=== PATIENT | male | born 1970 | race Caucasian/White ===

== ENCOUNTER 2017-02-19 11:04 | Observation (INO) | payer BC ==
[~2017-02-19 11:04] MED LIST: HYDROmorphone 1 MG/ML Syringe ONE
[2017-02-19] MEDS ORDERED: HYDROmorphone 1 MG/ML Syringe IVPUSH ONE ×3 (11:10→13:09)
--- NOTE | 2017-02-19 11:28 | EDM.PDOC ---
ED HPI GENERAL MEDICAL PROBLEM - General Chief Complaint: Back Pain or Injury Stated Complaint: back injury Time Seen by Provider: 02/19/17 11:20 Source of Information: Reports: Patient, EMS History Limitations: Reports: No Limitations - History of Present Illness INITIAL COMMENTS - FREE TEXT/NARRATIVE: Patient is a 46 year old male who [facility] He reports that he slipped and fell out of the back of a pickup onto a trailer hitch, hitting his mid and lower back. At the time of ER presentation patient appears to be in severe pain and c/o 10/10 pain to his mid/lower back, worse in his right mid/ lower back. He is able to move all extremities. He denies loss of bowel or bladder control. Denies numbness of tingling. Denies LOC with fall. No complaints outside of the back pain. 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 Right Back Pain Score (Numeric/FACES): 10 - Related Data Allergies Allergy/AdvReac Type Severity Reaction Status Date / Time No Known Allergies Allergy Verified 05/05/16 10:03 Home Meds: Home Meds Loratadine [Claritin] 10 mg PO DAILY 05/04/16 [History] Psyllium Husk (With Sugar) [Metamucil Powder] 1 dose PO BID PRN 05/04/16 [ History] Losartan [Cozaar] 100 mg PO DAILY 02/19/17 [History] Pantoprazole Sodium [Pantoprazole Sodium] 40 mg PO DAILY 02/19/17 [History] atorvaSTATin Calcium [Atorvastatin Calcium] 10 mg PO DAILY 02/19/17 [History] Past Medical History Musculoskeletal History: Reports: Other (See Below) Other Musculoskeletal History: fibula fracture ED ROS GENERAL - Review of Systems Review Of Systems: ROS reveals no pertinent complaints other than HPI. Constitutional: Reports: No Symptoms HEENT: Reports: No Symptoms Respiratory: Reports: No Symptoms Cardiovascular: Reports: No Symptoms Endocrine: Reports: No Symptoms GI/Abdominal: Reports: No Symptoms : Reports: No Symptoms Musculoskeletal: Reports: Muscle Pain, Other (back pain- right mid and upper) Skin: Reports: No Symptoms Neurological: Reports: No Symptoms, Difficulty Walking (due to pain). Denies: Confusion, Dizziness, Headache, Numbness, Paresthesia, Pre-Existing Deficit, Seizure, Syncope, Tingling, Tremors, Trouble Speaking, Change in Speech Psychiatric: Reports: No Symptoms Hematologic/Lymphatic: Reports: No Symptoms Immunologic: Reports: No Symptoms ED EXAM,LOWER BACK PAIN/INJURY - Physical Exam Exam: See Below Exam Limited By: No Limitations General Appearance: Alert, WD/WN, Anxious, Moderate Distress Eye Exam: Bilateral Eye: EOMI, Normal Fundi, Normal Inspection, PERRL Ears: Normal External Exam, Normal Canal, Hearing Grossly Normal, Normal TMs Nose: Normal Inspection, Normal Mucosa, No Blood Throat/Mouth: Normal Inspection, Normal Lips, Normal Teeth, Normal Gums, Normal Oropharynx, Normal Voice, No Airway Compromise Head: Atraumatic, Normocephalic Neck: Normal Inspection, Supple, Non-Tender, Full Range of Motion Respiratory/Chest: No Respiratory Distress, Lungs Clear, Normal Breath Sounds, No Accessory Muscle Use, Chest Non-Tender Cardiovascular: Normal Peripheral Pulses, Regular Rate, Rhythm, No Edema, No Gallop, No JVD, No Murmur, No Rub GI/Abdominal: Normal Bowel Sounds, Soft, Non-Tender, No Organomegaly, No Distention, No Abnormal Bruit, No Mass (Male) Exam: Deferred Rectal (Males) Exam: Deferred Back Exam: Decreased Range of Motion (pain), Muscle Spasm, Other (edema and ecchymosis to right upper back, pain with movement). No: CVA Tenderness (L), CVA Tenderness (R), Paraspinal Tenderness, Vertebral Tenderness Extremities: Normal Inspection, Normal Range of Motion, Non-Tender, No Pedal Edema, Normal Capillary Refill Neurological: Alert, Normal Mood/Affect, Normal Dorsiflexion, CN II-XII Intact, Normal Plantar Flexion, Normal Reflexes, No Motor/Sensory Deficits, Oriented x 3 Psychiatric: Anxious Skin Exam: Warm, Dry, Intact, Normal Color, No Rash, Ecchymosis (to upper right back) Lymphatic: No Adenopathy Course - Vital Signs Last Recorded V/S: Last Vital Signs Temp 98.3 F 02/19/17 11:05 Pulse 75 02/19/17 11:05 Resp 22 H 02/19/17 11:05 BP 138/81 02/19/17 11:05 Pulse Ox 95 02/19/17 11:05 - Orders/Labs/Meds Orders: Active Orders 24 hr Category Date Time Status Lumbar Spine wo Cont [CT] Stat Exams 02/19/17 11:15 Taken Thoracic Spine wo Cont [CT] Stat Exams 02/19/17 11:15 Taken Medication Orders Acetaminophen (Tylenol) 650 mg PO Q4H PRN PRN Reason: Pain (Mild 1-3)/fever Cyclobenzaprine HCl (Flexeril) 10 mg PO TID PRN PRN Reason: Pain Docusate Sodium (Colace) 100 mg PO BID PRN PRN Reason: Constipation Hydromorphone HCl (Dilaudid) 0.5 mg IVPUSH Q2H PRN PRN Reason: Pain (severe 7-10) Losartan Potassium (Cozaar) 100 mg PO DAILY [facility] Magnesium Hydroxide (Milk Of Magnesia) 30 ml PO Q12H PRN PRN Reason: Constipation Ondansetron HCl (Zofran) 4 mg IV Q6H PRN PRN Reason: Nausea/Vomiting Oxycodone/Acetaminophen (Percocet 325-5 Mg) 1 tab PO Q4H PRN PRN Reason: pain Pantoprazole Sodium (Protonix) 40 mg PO DAILY [facility] Psyllium Husk (Metamucil Sugar Free) 1 pkt PO BID PRN PRN Reason: constipation Temazepam (Restoril) 15 mg PO BEDTIME PRN PRN Reason: Sleep Meds: Medications Generic Name Dose Route Start Last Admin Trade Name Freq PRN Reason Stop Dose Admin Acetaminophen 650 mg 02/19/17 14:38 Tylenol PO Q4H PRN Pain (Mild 1-3)/fever Cyclobenzaprine HCl 10 mg 02/19/17 14:38 Flexeril PO TID PRN Pain Docusate Sodium 100 mg 02/19/17 14:38 Colace PO BID PRN Constipation Hydromorphone HCl 0.5 mg 02/19/17 14:38 Dilaudid IVPUSH Q2H PRN Pain (severe 7-10) Losartan Potassium 100 mg 02/20/17 08:00 Cozaar PO DAILY [facility] Magnesium Hydroxide 30 ml 02/19/17 14:38 Milk Of Magnesia PO Q12H PRN Constipation Ondansetron HCl 4 mg 02/19/17 14:38 Zofran IV Q6H PRN Nausea/Vomiting Oxycodone/Acetaminophen 1 tab 02/19/17 14:38 Percocet 325-5 Mg PO Q4H PRN pain Pantoprazole Sodium 40 mg 02/20/17 08:00 Protonix PO DAILY FRANCES Psyllium Husk 1 pkt 02/20/17 08:00 Metamucil Sugar Free PO BID PRN constipation Temazepam 15 mg 02/19/17 14:38 Restoril PO BEDTIME PRN Sleep Discontinued Medications Generic Name Dose Route Start Last Admin Trade Name Freq PRN Reason Stop Dose Admin Hydromorphone HCl Confirm 02/19/17 10:59 02/19/17 11:22 Dilaudid Administered 02/19/17 11:00 Not Given Dose 1 mg .ROUTE .STK-MED ONE Hydromorphone HCl 1 mg 02/19/17 11:10 02/19/17 11:10 Dilaudid IVPUSH 02/19/17 11:11 1 mg ONETIME ONE Administration Hydromorphone HCl 1 mg 02/19/17 12:04 02/19/17 12:10 Dilaudid IVPUSH 02/19/17 12:05 1 mg ONETIME ONE Administration Hydromorphone HCl 1 mg 02/19/17 13:09 02/19/17 13:14 Dilaudid IVPUSH 02/19/17 13:10 1 mg ONETIME ONE Administration Orphenadrine Citrate 60 mg 02/19/17 11:30 02/19/17 11:30 Norflex IV 60 mg Q12H FRANCES Administration - Radiology Interpretation Free Text/Narrative:: Radiologist reports right transverse process fractures of T12, L1, L2, and L3. Does not see any other abnormalities. CT Results Date: 02/19/17 CT Results Time: 13:06 - Re-Assessments/Exams Free Text/Narrative Re-Assessment/Exam: 02/19/17 13:08 Consulted with Joe De Jesus Neurosurgeron Dr. Marsh. Images sent to him for review. He reports that this type of fracture does not cause issues with stability of the spine and there is nothing to be done surgically. He states these types of fractures are very painful and take time to heal. He reports that they typically heal within 4-6 weeks without any residual deficits. He does expect the patient to have terrible pain for about the next month. He recommends pain control and a brace, such as a [place] brace, to decrease movement of the affected area for better pain control. 02/19/2017 13:[address] results with patient, , and family members present. Will admit patient to observation under Dr. Cooper for pain control. Departure - Departure Time of Disposition: 14:09 Disposition: Refer to Observation Condition: Fair Clinical Impression: Fracture of transverse process of lumbar vertebra Qualifiers: Encounter type: initial encounter Fracture type: closed Qualified Code(s): S32.009A - Unspecified fracture of unspecified lumbar vertebra, initial encounter for closed fracture Fracture of transverse process of thoracic vertebra Qualifiers: Encounter type: initial encounter Fracture type: closed Qualified Code(s): S22.009A - Unspecified fracture of unspecified thoracic vertebra, initial encounter for closed fracture - Discharge Information - Problem List & Annotations (1) Fracture of transverse process of lumbar vertebra SNOMED Code(s): 971936872 Code(s): S32.009A - UNSP FRACTURE OF UNSP LUMBAR VERTEBRA, INIT FOR CLOS FX Status: Acute Priority: High Current Visit: Yes Qualifiers: Encounter type: initial encounter Fracture type: closed Qualified Code(s) : S32.009A - Unspecified fracture of unspecified lumbar vertebra, initial encounter for closed fracture (2) Fracture of transverse process of thoracic vertebra SNOMED Code(s): 253013286 Code(s): S22.009A - UNSP FRACTURE OF UNSP THORACIC VERTEBRA, INIT FOR CLOS FX Status: Acute Priority: High Current Visit: Yes Qualifiers: Encounter type: initial encounter Fracture type: closed Qualified Code(s) : S22.009A - Unspecified fracture of unspecified thoracic vertebra, initial encounter for closed fracture (3) Back pain due to injury SNOMED Code(s): 374624043 Code(s): S39.92XA - UNSPECIFIED INJURY OF LOWER BACK, INITIAL ENCOUNTER Status: Acute Priority: High Current Visit: Yes - Problem List Review Problem List Initiated/Reviewed/Updated: Yes - My Orders Last 24 Hours: My Active Orders 02/19/17 11:15 Lumbar Spine wo Cont [CT] Stat Thoracic Spine wo Cont [CT] Stat - Assessment/Plan Admission H&P: Please use this note as an admission H&P Last 24 Hours: My Active Orders 02/19/17 11:15 Lumbar Spine wo Cont [CT] Stat Thoracic Spine wo Cont [CT] Stat Assessment:: Right Transverse Process Fracture T12, L1, L2, and L3 Acute back pain due to trauma Plan: Will admit to observation under care of Dr. Cooper. Oral pain medications PRN. IV pain medications for breakthrough pain. Consult to Physical therapy Patient will bring back brace from home Patient ok to use home medications. Recommend patient take stool softner for next month while on pain medications.
[2017-02-19] MEDS ORDERED: Docusate Sodium 100 MG Cap PO PRN (14:38)
[2017-02-19] MEDS ORDERED: Magnesium Hydroxide 400 MG/5 ML Susp 30 ML Cup PO PRN (14:38)
[2017-02-19] MEDS ORDERED: Temazepam 15 MG Cap PO PRN (14:38)
[2017-02-19] MEDS ORDERED: Cyclobenzaprine 10 MG Tab PO PRN (14:38)
[2017-02-19] MEDS ORDERED: Acetaminophen/oxyCODONE 325-5 MG Tab PO PRN (14:38)
[2017-02-19] MEDS ORDERED: Ondansetron 4 MG/2 ML SDV IV PRN (14:38)
[2017-02-19] MEDS ORDERED: Acetaminophen 325 MG Tab PO PRN (14:38)
[2017-02-19] MEDS: HYDROmorphone 1 MG/ML Syringe IVPUSH PRN ×2 (16:56→21:05)
[2017-02-19] MEDS ORDERED: Promethazine 25 MG in Sodium Chloride 0.9% 50 ML IV PRN (20:38)
[2017-02-19] MEDS ORDERED: Promethazine 12.5 MG in Sodium Chloride 0.9% 50 ML IV PRN (21:10)
[2017-02-20] MEDS: HYDROmorphone 1 MG/ML Syringe IVPUSH PRN (05:08)
[2017-02-20] MEDS ORDERED: Psyllium Husk Powder Sugar Free 5.85 GM Packet PO PRN (08:00)
[2017-02-20] MEDS ORDERED: hydrOXYzine HCl 25 MG Tab PO PRN (08:32)
[2017-02-20] MEDS: Losartan 100 MG Tab PO SCH (08:47)
[2017-02-20] MEDS: Polyethylene Glycol 3350 Powder 17 GM Packet PO SCH (08:48)
[2017-02-20] MEDS: Enoxaparin 40 MG/0.4 ML Syringe SUBCUT SCH (08:48)
[2017-02-20] MEDS: Pantoprazole 40 MG Tab.CR PO SCH (08:48)
[2017-02-20] MEDS: Docusate Sodium 100 MG Cap PO SCH ×2 (08:48→20:22)
[2017-02-20] MEDS: Acetaminophen/oxyCODONE 325-5 MG Tab PO PRN ×2 (08:49→21:20)
[2017-02-20] MEDS: Celecoxib 100 MG Cap PO SCH ×2 (09:09→17:28)
[2017-02-20] MEDS: Cyclobenzaprine 10 MG Tab PO SCH ×3 (09:09→20:21)
--- NOTE | 2017-02-20 19:20 | PCM.PN ---
- General Info Date of Service: 02/20/17 Functional Status: Reports: Tolerating Diet. Denies: Pain Controlled, Ambulating - Review of Systems General: Denies: Fever HEENT: Reports: No Symptoms Pulmonary: Denies: Shortness of Breath, Cough Cardiovascular: Denies: Chest Pain Gastrointestinal: Reports: No Symptoms Musculoskeletal: Reports: Back Pain Skin: Reports: Bruising Psychiatric: Reports: No Symptoms - Patient Data Vitals - Most Recent: Last Vital Signs Temp 97.6 F 02/20/17 08:00 Pulse 68 02/20/17 08:00 Resp 18 02/20/17 08:00 BP 142/74 H 02/20/17 08:47 Pulse Ox 95 02/20/17 08:00 Weight - Most Recent: 226 lb Med Orders - Current: Current Medications Acetaminophen (Tylenol) 650 mg PO Q4H PRN PRN Reason: Pain (Mild 1-3)/fever Celecoxib (Celebrex) 200 mg PO BIDMEALS [facility] Last Admin: 02/20/17 17:28 Dose: 200 mg Cyclobenzaprine HCl (Flexeril) 10 mg PO TID [facility] Last Admin: 02/20/17 14:13 Dose: 10 mg Docusate Sodium (Colace) 100 mg PO BID [facility] Last Admin: 02/20/17 08:48 Dose: 100 mg Enoxaparin Sodium (Lovenox) 40 mg SUBCUT Q24H [facility] Last Admin: 02/20/17 08:48 Dose: 40 mg Hydromorphone HCl (Dilaudid) 0.5 mg IVPUSH Q2H PRN PRN Reason: Pain (severe 7-10) Last Admin: 02/20/17 05:08 Dose: 0.5 mg Hydroxyzine HCl (Atarax) 25 mg PO Q6H PRN PRN Reason: Itching Last Admin: 02/20/17 08:48 Dose: 25 mg Promethazine HCl 12.5 mg/ (Sodium Chloride) 50.5 mls @ 100 mls/hr IV Q6H PRN PRN Reason: Nausea Losartan Potassium (Cozaar) 100 mg PO DAILY [facility] Last Admin: 02/20/17 08:47 Dose: 100 mg Magnesium Hydroxide (Milk Of Magnesia) 30 ml PO Q12H PRN PRN Reason: Constipation Ondansetron HCl (Zofran) 4 mg IV Q6H PRN PRN Reason: Nausea/Vomiting Last Admin: 02/19/17 17:36 Dose: 4 mg Oxycodone/Acetaminophen (Percocet 325-5 Mg) 1 - 2 tab PO Q4H PRN PRN Reason: pain Last Admin: 02/20/17 08:49 Dose: 2 tab Pantoprazole Sodium (Protonix) 40 mg PO DAILY [facility] Last Admin: 02/20/17 08:48 Dose: 40 mg Polyethylene Glycol (Miralax) 17 gm PO DAILY [facility] Last Admin: 02/20/17 08:48 Dose: 17 gm Psyllium Husk (Metamucil Sugar Free) 1 pkt PO BID PRN PRN Reason: constipation Temazepam (Restoril) 15 mg PO BEDTIME PRN PRN Reason: Sleep Discontinued Medications Cyclobenzaprine HCl (Flexeril) 10 mg PO TID PRN PRN Reason: Pain Last Admin: 02/19/17 18:38 Dose: 10 mg Docusate Sodium (Colace) 100 mg PO BID PRN PRN Reason: Constipation Hydromorphone HCl (Dilaudid) Confirm Administered Dose 1 mg .ROUTE .STK-MED ONE Stop: 02/19/17 11:00 Last Admin: 02/19/17 11:22 Dose: Not Given Hydromorphone HCl (Dilaudid) 1 mg IVPUSH ONETIME ONE Stop: 02/19/17 11:11 Last Admin: 02/19/17 11:10 Dose: 1 mg Hydromorphone HCl (Dilaudid) 1 mg IVPUSH ONETIME ONE Stop: 02/19/17 12:05 Last Admin: 02/19/17 12:10 Dose: 1 mg Hydromorphone HCl (Dilaudid) 1 mg IVPUSH ONETIME ONE Stop: 02/19/17 13:10 Last Admin: 02/19/17 13:14 Dose: 1 mg Promethazine HCl 25 mg/ Sodium (Chloride) 51 mls @ 100 mls/hr IV Q6H PRN PRN Reason: Nausea Last Admin: 02/19/17 20:55 Dose: 100 mls/hr Orphenadrine Citrate (Norflex) 60 mg IV Q12H [facility] Last Admin: 02/19/17 11:30 Dose: 60 mg Oxycodone/Acetaminophen (Percocet 325-5 Mg) 1 tab PO Q4H PRN PRN Reason: pain Last Admin: 02/19/17 18:38 Dose: 1 tab - Exam General: Alert, Oriented HEENT: Mucous Membr. Moist/[place] Neck: Supple Lungs: Clear to Auscultation, Normal Respiratory Effort Cardiovascular: Regular Rate, Regular Rhythm GI/Abdominal Exam: Normal Bowel Sounds, Soft, Non-Tender Back Exam: Decreased Range of Motion, Vertebral Tenderness, Other (bruising to right lateral flank) Extremities: Normal Inspection, No Pedal Edema Skin: Warm, Dry, Ecchymosis Neurological: No New Focal Deficit - Problem List & Annotations (1) Back pain due to injury SNOMED Code(s): 244963717 Code(s): S39.92XA - UNSPECIFIED INJURY OF LOWER BACK, INITIAL ENCOUNTER Status: Acute Priority: High Current Visit: Yes (2) Fracture of transverse process of lumbar vertebra SNOMED Code(s): 069947130 Code(s): S32.009A - UNSP FRACTURE OF UNSP LUMBAR VERTEBRA, INIT FOR CLOS FX Status: Acute Priority: High Current Visit: Yes Qualifiers: Encounter type: initial encounter Fracture type: closed Qualified Code(s) : S32.009A - Unspecified fracture of unspecified lumbar vertebra, initial encounter for closed fracture (3) Fracture of transverse process of thoracic vertebra SNOMED Code(s): 882093466 Code(s): S22.009A - UNSP FRACTURE OF UNSP THORACIC VERTEBRA, INIT FOR CLOS FX Status: Acute Priority: High Current Visit: Yes Qualifiers: Encounter type: initial encounter Fracture type: closed Qualified Code(s) : S22.009A - Unspecified fracture of unspecified thoracic vertebra, initial encounter for closed fracture - Problem List Review Problem List Initiated/Reviewed/Updated: Yes - My Orders Last 24 Hours: My Active Orders 02/20/17 08:00 Enoxaparin [Lovenox] 40 mg SUBCUT Q24H 02/20/17 08:32 hydrOXYzine HCl [Atarax] 25 mg PO Q6H PRN 02/20/17 08:33 Acetaminophen/oxyCODONE [Percocet 325-5 MG] 1 - 2 tab PO Q4H PRN 02/20/17 08:45 Docusate Sodium [Colace] 100 mg PO BID Polyethylene Glycol 3350 [MiraLAX] 17 gm PO DAILY 02/20/17 09:00 Celecoxib [CeleBREX] 200 mg PO BIDMEALS Cyclobenzaprine [Flexeril] 10 mg PO TID - Assessment Assessment:: Tranverse fracture of lumbar and thoracic spine - Plan Plan:: Patient continues to have ongoing pain, controlled by Dilaudid. Did take Percocet yesterday but had increased nausea and ultimately had emesis so has been leary to try oral meds since. Also admits he hadn't eaten much prior to the trauma. Moderate amount of bruising noted to right flank region. Tender to the vertebral area. Will add Celebrex and give Flexeril on a scheduled basis. Add hydroxyzine for itching. Zofran as needed for nausea. Encouraged to use pain pills routinely to allow better mobilization. Physical therapy to see patient today.
[2017-02-21] MEDS: Cyclobenzaprine 10 MG Tab PO SCH (07:44)
[2017-02-21] MEDS: Losartan 100 MG Tab PO SCH (07:45)
[2017-02-21] MEDS: Celecoxib 100 MG Cap PO SCH (07:45)
[2017-02-21] MEDS: Docusate Sodium 100 MG Cap PO SCH (07:46)
[2017-02-21] MEDS: Pantoprazole 40 MG Tab.CR PO SCH (07:46)
[2017-02-21] MEDS: Enoxaparin 40 MG/0.4 ML Syringe SUBCUT SCH (07:46)
[2017-02-21] MEDS: Polyethylene Glycol 3350 Powder 17 GM Packet PO SCH (07:47)
[2017-02-21 11:51] VITALS: BP 125/80
--- NOTE | 2017-02-21 16:22 | PCM.DCSUM1 ---
Discharge Summary - Hospital Course Free Text/Narrative:: Patient admitted from ER with transverse process fractures of T12, L1, L2, L3, L4 for pain control. 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 Presented with pain a 01/23 and was given several doses of Dilaudid before the pain was controlled. Started on Flexeril prn, Fentanyl and Dilaudid as needed. PT to consult for pain control and mobility. Patient did have bruising noted to the right lower back/flank area. - Discharge Data Discharge Date: 02/21/17 Discharge Disposition: Home, Self-Care 01 Condition: Fair - Discharge Diagnosis/Problem(s) (1) Back pain due to injury SNOMED Code(s): 509449063 ICD Code: S39.92XA - UNSPECIFIED INJURY OF LOWER BACK, INITIAL ENCOUNTER Status: Acute Priority: High (2) Fracture of transverse process of lumbar vertebra SNOMED Code(s): 051656979 ICD Code: S32.009A - UNSP FRACTURE OF UNSP LUMBAR VERTEBRA, INIT FOR CLOS FX Status: Acute Priority: High Qualifiers: Encounter type: initial encounter Fracture type: closed Qualified Code(s) : S32.009A - Unspecified fracture of unspecified lumbar vertebra, initial encounter for closed fracture (3) Fracture of transverse process of thoracic vertebra SNOMED Code(s): 759499097 ICD Code: S22.009A - UNSP FRACTURE OF UNSP THORACIC VERTEBRA, INIT FOR CLOS FX Status: Acute Priority: High Qualifiers: Encounter type: initial encounter Fracture type: closed Qualified Code(s) : S22.009A - Unspecified fracture of unspecified thoracic vertebra, initial encounter for closed fracture - Patient Summary/Data Complications: none Consults: Consultations 02/20/17 14:50 Consult to Physical Therapy [PT Evaluation and Treatment] [CONS] Routine Hospital Course: Patient admitted for transverse fractures of his T12 and L1-4 vertebrae for pain control. Was initially given IV Dilaudid PRN for control. Did have significant itching with this. Switched to oral pain medicine, added Celebrex and scheduled Flexeril yesterday and patient has done better. Sleeping better. Was up and out of bed several times yesterday and states tolerated fairly well. Is moving his right lower extremity much better today as well. Patient does feel sedated somewhat from meds. Does feel able to return home and continue oral meds for pain and inflammation. - Patient Instructions Diet: Usual Diet as Tolerated Activity: As Tolerated Other/Special Instructions: xrays of back prior to visit - Discharge Plan Prescriptions/Med Rec: Acetaminophen/oxyCODONE [Percocet 325-5 MG] 1 - 2 tab PO Q4H PRN #60 tablet PRN Reason: Pain Celecoxib [CeleBREX] 200 mg PO BIDMEALS #28 cap Cyclobenzaprine [Flexeril] 10 mg PO TID #42 tablet hydrOXYzine HCl [Atarax] 25 mg PO Q6H PRN #30 tablet PRN Reason: Itching Polyethylene Glycol 3350 [MiraLAX] 17 gm PO DAILY PRN #30 packet PRN Reason: Constipation Home Medications: Home Meds Loratadine [Claritin] 10 mg PO DAILY 05/04/16 [History] Psyllium Husk (With Sugar) [Metamucil Powder] 1 dose PO BID PRN 05/04/16 [ History] Losartan [Cozaar] 100 mg PO DAILY 02/19/17 [History] Pantoprazole Sodium 40 mg PO DAILY 02/19/17 [History] atorvaSTATin Calcium [Atorvastatin Calcium] 10 mg PO DAILY 02/19/17 [History] Acetaminophen/oxyCODONE [Percocet 325-5 MG] 1 - 2 tab PO Q4H PRN #60 tablet 11/30 [Rx] Celecoxib [CeleBREX] 200 mg PO BIDMEALS #28 cap 02/21/17 [Rx] Cyclobenzaprine [Flexeril] 10 mg PO TID #42 tablet 02/21/17 [Rx] Polyethylene Glycol 3350 [MiraLAX] 17 gm PO DAILY PRN #30 packet 02/21/17 [Rx] hydrOXYzine HCl [Atarax] 25 mg PO Q6H PRN #30 tablet 02/21/17 [Rx] Forms: ED Department Discharge Referrals: Fawad Cooper MD [Primary Care Provider] - (Follow up with Dr. Cooper in 2 weeks ) - Discharge Summary/Plan Comment DC Time >30 min.: Yes Discharge Summary/Plan Comment: Discharge home on Celebrex, Flexeril and Percocet. Continue hydroxyzine. Follow up with Dr. Cooper in 2 weeks. Will repeat xrays at that time. - General Info Date of Service: 02/21/17 Admission Dx/Problem (Free Text: Multiple transverse process fractures of T12, L1,2,3,4 Functional Status: Reports: Pain Controlled, Tolerating Diet, Ambulating - Review of Systems General: Reports: Weakness. Denies: Fever HEENT: Reports: No Symptoms Pulmonary: Denies: Shortness of Breath, Cough, Wheezing Cardiovascular: Denies: Chest Pain, Lightheadedness Gastrointestinal: Denies: Abdominal Pain, Nausea, Vomiting Genitourinary: Reports: No Symptoms Musculoskeletal: Reports: Back Pain Skin: Reports: No Symptoms - Patient Data Vitals - Most Recent: Last Vital Signs Temp 97.5 F 02/21/17 08:00 Pulse 60 02/21/17 08:00 Resp 19 02/21/17 08:00 BP 125/80 02/21/17 08:00 Pulse Ox 92 L 02/21/17 08:00 Weight - Most Recent: 226 lb Med Orders - Current: Current Medications Discontinued Medications Acetaminophen (Tylenol) 650 mg PO Q4H PRN PRN Reason: Pain (Mild 1-3)/fever Celecoxib (Celebrex) 200 mg PO BIDMEALS [facility] Last Admin: 02/21/17 07:45 Dose: 200 mg Cyclobenzaprine HCl (Flexeril) 10 mg PO TID PRN PRN Reason: Pain Last Admin: 02/19/17 18:38 Dose: 10 mg Cyclobenzaprine HCl (Flexeril) 10 mg PO TID [facility] Last Admin: 02/21/17 07:44 Dose: 10 mg Docusate Sodium (Colace) 100 mg PO BID PRN PRN Reason: Constipation Docusate Sodium (Colace) 100 mg PO BID [facility] Last Admin: 02/21/17 07:46 Dose: 100 mg Enoxaparin Sodium (Lovenox) 40 mg SUBCUT Q24H [facility] Last Admin: 02/21/17 07:46 Dose: 40 mg Hydromorphone HCl (Dilaudid) Confirm Administered Dose 1 mg .ROUTE .STK-MED ONE Stop: 02/19/17 11:00 Last Admin: 02/19/17 11:22 Dose: Not Given Hydromorphone HCl (Dilaudid) 1 mg IVPUSH ONETIME ONE Stop: 02/19/17 11:11 Last Admin: 02/19/17 11:10 Dose: 1 mg Hydromorphone HCl (Dilaudid) 1 mg IVPUSH ONETIME ONE Stop: 02/19/17 12:05 Last Admin: 02/19/17 12:10 Dose: 1 mg Hydromorphone HCl (Dilaudid) 1 mg IVPUSH ONETIME ONE Stop: 02/19/17 13:10 Last Admin: 02/19/17 13:14 Dose: 1 mg Hydromorphone HCl (Dilaudid) 0.5 mg IVPUSH Q2H PRN PRN Reason: Pain (severe 7-10) Last Admin: 02/20/17 05:08 Dose: 0.5 mg Hydroxyzine HCl (Atarax) 25 mg PO Q6H PRN PRN Reason: Itching Last Admin: 02/20/17 08:48 Dose: 25 mg Promethazine HCl 25 mg/ Sodium (Chloride) 51 mls @ 100 mls/hr IV Q6H PRN PRN Reason: Nausea Last Admin: 02/19/17 20:55 Dose: 100 mls/hr Promethazine HCl 12.5 mg/ (Sodium Chloride) 50.5 mls @ 100 mls/hr IV Q6H PRN PRN Reason: Nausea Losartan Potassium (Cozaar) 100 mg PO DAILY [facility] Last Admin: 02/21/17 07:45 Dose: 100 mg Magnesium Hydroxide (Milk Of Magnesia) 30 ml PO Q12H PRN PRN Reason: Constipation Ondansetron HCl (Zofran) 4 mg IV Q6H PRN PRN Reason: Nausea/Vomiting Last Admin: 02/19/17 17:36 Dose: 4 mg Orphenadrine Citrate (Norflex) 60 mg IV Q12H [facility] Last Admin: 02/19/17 11:30 Dose: 60 mg Oxycodone/Acetaminophen (Percocet 325-5 Mg) 1 tab PO Q4H PRN PRN Reason: pain Last Admin: 02/19/17 18:38 Dose: 1 tab Oxycodone/Acetaminophen (Percocet 325-5 Mg) 1 - 2 tab PO Q4H PRN PRN Reason: pain Last Admin: 02/20/17 21:20 Dose: 2 tab Pantoprazole Sodium (Protonix) 40 mg PO DAILY [facility] Last Admin: 02/21/17 07:46 Dose: 40 mg Polyethylene Glycol (Miralax) 17 gm PO DAILY [facility] Last Admin: 02/21/17 07:47 Dose: 17 gm Psyllium Husk (Metamucil Sugar Free) 1 pkt PO BID PRN PRN Reason: constipation Temazepam (Restoril) 15 mg PO BEDTIME PRN PRN Reason: Sleep - Exam General: Reports: Alert, Oriented HEENT: Reports: Mucous Membr. Moist/Bent Neck: Reports: Supple Lungs: Reports: Clear to Auscultation, Normal Respiratory Effort Cardiovascular: Reports: Regular Rate, Regular Rhythm GI/Abdominal Exam: Normal Bowel Sounds, Soft, Non-Tender Back Exam: Reports: Decreased Range of Motion, Muscle Spasm, Vertebral Tenderness Skin: Reports: Ecchymosis *Q Meaningful Use (DIS) - VTE *Q VTE Criteria *Q: - Stroke *Q Stroke Criteria *Q: - AMI *Q AMI Criteria *Q:
== END 2017-02-21 11:30 | disposition home or self-care (01) ==
LOC: CC.ED 11:04 → CC.MS 13:50 → UNDOADMOB 14:33
PROVIDERS: ADMIT Nurse Practitioner Family; ATTEND Family Medicine
DX: S22.088A Other fracture of T11-T12 vertebra, initial encounter for closed fracture (principal); S32.008A Other fracture of unspecified lumbar vertebra, initial encounter for closed fracture; S39.92XA Unspecified injury of lower back, initial encounter; I10 Essential (primary) hypertension; E78.00 Pure hypercholesterolemia, unspecified; Z79.899 Other long term (current) drug therapy; W01.198A Fall on same level from slipping, tripping and stumbling with subsequent striking against other object, initial encounter; Z98.890 Other specified postprocedural states
CPT/HCPCS: 72128; 72131; 96374; 96375; 96376; 99285; A9270; J1170; J1650; J2360; J2405; J2550; J7050; 96365; 96366; 96372; G0378

== ENCOUNTER → 2018-07-19 | Day surgery (SDC) | payer BC ==
[~2018-07-19] MED LIST changes: -HYDROmorphone 1 MG/ML Syringe ONE; +Lactated Ringers 1,000 ML IV SCH; +Propofol 200 MG/20 ML SDV IV ONE
[2018-07-19 09:45] VITALS: BP 138/77
--- NOTE | 2018-07-19 14:42 | OR ---
DATE OF OPERATION: 07/19/2018 PREOPERATIVE DIAGNOSIS: 1. FAMILY HISTORY OF COLON CANCER. 2. HISTORY OF POLYPS. POSTOPERATIVE DIAGNOSIS: 1. FAMILY HISTORY OF COLON CANCER. 2. HISTORY OF POLYPS. SURGEON: Fawad Cooper MD PROCEDURE: DIAGNOSTIC COLONOSCOPY WITH FORCEPS POLYP REMOVAL X4. ANESTHESIA: MAC via ELECTROPHONIC ENGINEER. COMPLICATIONS: None. SPECIMEN: Four small sessile polyps, left colon. RECOMMENDATIONS: Followup colon in 3 to 5 years pending path reports. INDICATIONS: The patient has a strong family history of colon cancer. Last colonoscopy was 3 years ago. We took out 2 polyps. He is in for a 3-year followup diagnostic scope. DESCRIPTION OF PROCEDURE: The patient was prepped and draped, placed in the left lateral decubitus position. A lubricated Olympus colonoscope was inserted and easily advanced to the cecum. Direct visualization of the ileocecal valve and appendiceal orifice was accomplished. The bowel prep was excellent. Upon withdrawal of the scope, the cecum, ascending and transverse colon were completely benign. On the left side of the splenic flexure, the patient had a small sessile polyp removed in its entirety with the cold forceps biopsy x2. Second polyp was noted at the distal end of the descending colon, very small, possibly hyperplastic, removed with a forceps as well. For the most part, the sigmoid colon appeared benign without any other significant polyps, masses, ulceration, or bleeding sites. No vascular abnormalities or signs of colitis. At its most distal portion, there was 1 small flat hyperplastic polyp removed with a forceps. The 4th polyp was in the proximal rectum also extremely small, flat, and likely hyperplastic. The rest of the rectum appeared benign. Retroflexion showed no perianal lesions, air was suctioned, scope removed without complication. JAMES/COURTNEY /[id number]
== END ==
LOC: CC.SDS 08:15
PROVIDERS: ATTEND Family Medicine
DX: Z12.11 Encounter for screening for malignant neoplasm of colon (principal); D12.5 Benign neoplasm of sigmoid colon; D12.3 Benign neoplasm of transverse colon; K63.5 Polyp of colon; K62.1 Rectal polyp; I10 Essential (primary) hypertension; J45.909 Unspecified asthma, uncomplicated; K21.9 Gastro-esophageal reflux disease without esophagitis; E78.5 Hyperlipidemia, unspecified; Z86.010 Personal history of colon polyps; Z79.899 Other long term (current) drug therapy; Z80.0 Family history of malignant neoplasm of digestive organs
CPT/HCPCS: J2704; J7120

== ENCOUNTER 2018-08-03 12:50 | Observation (INO) | payer BC ==
[2018-08-03] MEDS ORDERED: Ketorolac 60 MG/2 ML SDV IM ONE (12:58)
--- NOTE | 2018-08-03 13:33 | EDM.PDOC ---
ED HPI GENERAL MEDICAL PROBLEM - General Chief Complaint: Back Pain or Injury Stated Complaint: back pain Time Seen by Provider: 08/03/18 13:10 Source of Information: Reports: Patient History Limitations: Reports: No Limitations - History of Present Illness INITIAL COMMENTS - FREE TEXT/NARRATIVE: Patient presents to ER with low back pain that radiates down his legs. 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 Last Sunday, patient was bending over to give something to his and he had instant pain in his back and went to the ground. Rested for a few days, wore a back brace and was doing much better. Today, patient bent over to wipe dust off his jeep and had the same pain occur. Now has difficulty with pain in his low back and tingling down his legs. No urinary incontinence. Onset: Today, Sudden Duration: Minutes: Location: Reports: Back Quality: Reports: Sharp Severity: Severe Improves with: Reports: Rest Worsens with: Reports: Movement Associated Symptoms: Reports: No Other Symptoms Back Pain Score (Numeric/FACES): 6 - Related Data Allergies Allergy/AdvReac Type Severity Reaction Status Date / Time No Known Allergies Allergy Verified 08/03/18 13:04 Home Meds: Home Meds Pantoprazole Sodium 40 mg PO DAILY 02/19/17 [History] atorvaSTATin Calcium [Atorvastatin Calcium] 10 mg PO DAILY 02/19/17 [History] Albuterol [Proventil HFA] 2 puff INH Q4H PRN 07/15/18 [History] Losartan/Hydrochlorothiazide [Losartan-HCTZ 100-25 MG] 1 tab PO DAILY 07/15/18 [ History] Psyllium Husk [Metamucil] 660 gm PO DAILY 08/03/18 [History] Past Medical History Cardiovascular History: Reports: High Cholesterol, Hypertension Musculoskeletal History: Reports: Other (See Below) Other Musculoskeletal History: fibula fracture - Past Surgical History HEENT Surgical History: Reports: Naso-Sinus Surgery Social & Family History - Tobacco Use Smoking Status *Q: Never Smoker Second Hand Smoke Exposure: No - Caffeine Use Caffeine Use: Reports: Soda - Recreational Drug Use Recreational Drug Use: No ED ROS GENERAL - Review of Systems Review Of Systems: See Below Constitutional: Denies: Fever, Chills, Malaise, Weakness, Decreased Appetite HEENT: Reports: No Symptoms Respiratory: Denies: Shortness of Breath, Cough Cardiovascular: Denies: Chest Pain, Edema, Lightheadedness Endocrine: Denies: Fatigue GI/Abdominal: Denies: Abdominal Pain, Nausea, Vomiting Musculoskeletal: Reports: Back Pain, Leg Pain Skin: Reports: No Symptoms Neurological: Reports: Difficulty Walking ED EXAM,LOWER BACK PAIN/INJURY - Physical Exam Exam: See Below Exam Limited By: No Limitations General Appearance: Alert, WD/WN, Moderate Distress Ears: Normal External Exam, Normal TMs Nose: Normal Inspection, Normal Mucosa, No Blood Throat/Mouth: Normal Inspection, Normal Oropharynx Head: Normocephalic Neck: Normal Inspection, Supple, Non-Tender Respiratory/Chest: No Respiratory Distress, Lungs Clear, Normal Breath Sounds Cardiovascular: Regular Rate, Rhythm GI/Abdominal: Normal Bowel Sounds, Soft, Non-Tender Back Exam: Normal Inspection, Muscle Spasm, Paraspinal Tenderness (left), Other (positive straight leg raise on the left) Extremities: Normal Inspection, Normal Capillary Refill Neurological: Alert, Normal Mood/Affect, Straight Leg Raise (L) Skin Exam: Warm, Dry Course - Vital Signs Last Recorded V/S: Last Vital Signs Temp 99.7 F 08/03/18 13:00 Pulse 76 08/03/18 13:00 Resp 18 08/03/18 13:00 BP 122/64 08/03/18 13:00 Pulse Ox 95 08/03/18 13:00 - Orders/Labs/Meds Orders: Active Orders 24 hr Category Date Time Status Lumbar Spine Min 4V [CR] Stat Exams 08/03/18 12:59 Ordered Meds: Medications Discontinued Medications Generic Name Dose Route Start Last Admin Trade Name Fanny PRN Reason Stop Dose Admin Ketorolac Tromethamine 60 mg 08/03/18 12:58 08/03/18 13:24 Toradol IM 08/03/18 12:59 60 mg ONETIME ONE Administration Orphenadrine Citrate 60 mg 08/03/18 12:58 08/03/18 13:07 Norflex IM 08/03/18 12:59 60 mg NOW STA Administration - Re-Assessments/Exams Free Text/Narrative Re-Assessment/Exam: 08/03/18 14:07 Xrays normal. patient continues to have pain with movement. Will admit observation. If continues to have intense pain with limitations of ROM in am, will CT scan his back. Departure - Departure Time of Disposition: 14:07 Disposition: Refer to Observation Condition: Fair Clinical Impression: Sciatica, Acute low back pain - Discharge Information *PRESCRIPTION DRUG MONITORING PROGRAM REVIEWED*: No *COPY OF PRESCRIPTION DRUG MONITORING REPORT IN PATIENT MARYURI: No Referrals: PCP,None [Primary Care Provider] - Forms: ED Department Discharge - Problem List & Annotations (1) Acute low back pain SNOMED Code(s): 121885429 Code(s): M54.5 - LOW BACK PAIN Status: Acute Priority: High Current Visit: Yes Qualifiers: Back pain laterality: left Sciatica presence: with sciatica (2) Sciatica SNOMED Code(s): 06419930 Code(s): M54.30 - SCIATICA, UNSPECIFIED SIDE Status: Acute Priority: High Current Visit: Yes Qualifiers: Laterality: left Qualified Code(s): M54.32 - Sciatica, left side - Problem List Review Problem List Initiated/Reviewed/Updated: Yes - My Orders Last 24 Hours: My Active Orders 08/03/18 12:59 Lumbar Spine Min 4V [CR] Stat - Assessment/Plan Admission H&P: Please use this note as an admission H&P Last 24 Hours: My Active Orders 08/03/18 12:59 Lumbar Spine Min 4V [CR] Stat Assessment:: Acute Low Back with Sciatica Plan: Admit observation for pain control, steroids, PT
[2018-08-03] MEDS ORDERED: Ondansetron 4 MG/2 ML SDV IV PRN (15:32)
[2018-08-03] MEDS ORDERED: Ondansetron 4 MG Tab.DIS PO PRN (15:32)
[2018-08-03] MEDS ORDERED: Non-Formulary Medication 1 Each (Albuterol 2 PUFF) INH PRN (15:32)
[2018-08-03] MEDS ORDERED: Magnesium Hydroxide 400 MG/5 ML Susp 30 ML Cup PO PRN (15:32)
[2018-08-03] MEDS ORDERED: Sodium Chloride 0.9% 10 ML Syringe FLUSH PRN (15:32)
[2018-08-03] MEDS ORDERED: Temazepam 15 MG Cap PO PRN (15:32)
[2018-08-03] MEDS ORDERED: Cyclobenzaprine 10 MG Tab PO SCH (15:32)
[2018-08-03] MEDS ORDERED: Acetaminophen/oxyCODONE 325-5 MG Tab PO PRN (15:32)
[2018-08-03] MEDS ORDERED: fentaNYL 100 MCG/2 ML SDV IVPUSH PRN (15:32)
[2018-08-03] MEDS ORDERED: Enoxaparin 40 MG/0.4 ML Syringe SUBCUT SCH (15:32)
[2018-08-03] MEDS ORDERED: methylPREDNISolone Sodium Succinate 125 MG/2 ML SDV IVPUSH SCH ×2 (16:00→18:00)
[2018-08-03 16:31] VITALS: BP 132/76
[2018-08-03] MEDS: methylPREDNISolone Sodium Succinate 125 MG/2 ML SDV IVPUSH SCH ×2 (17:21→20:05)
[2018-08-03] MEDS ORDERED: methylPREDNISolone Sodium Succinate 125 MG/2 ML SDV ONE (17:24)
[2018-08-03] MEDS ORDERED: predniSONE 20 MG Tab ONE (20:21)
--- NOTE | 2018-08-03 22:26 | PCM.DCSUM1 ---
Discharge Summary - Hospital Course Free Text/Narrative:: Neeraj presented to ER with complaints of sudden onset low back pain with radiculopathy down his legs. States was dusting off his vehicle, just bending slightly when developed spasms and went to his knees. States had a hard time getting up and ambulating after this so needed assist to come to ER. Had similar incident last Sunday when bending over. Took ibuprofen, rested and wore a back brace for several days and did well. 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 Given Toradol and Norflex in the ER. Continued to have difficulty with movement. Admitted to observation for pain control and PT. Plan to obtain CT scan of lumbar spine in am if persistent pain and limited range of motion. Diagnosis: Stroke: No Modified [place] Scale: No Symptoms at All Modified [place] Scale Score: 0 - Discharge Data Discharge Date: 08/03/18 Discharge Disposition: Home, Self-Care 01 Condition: Good - Discharge Diagnosis/Problem(s) (1) Acute low back pain SNOMED Code(s): 873556175 ICD Code: M54.5 - LOW BACK PAIN Status: Acute Priority: High Qualifiers: Back pain laterality: left Sciatica presence: with sciatica (2) Sciatica SNOMED Code(s): 84988815 ICD Code: M54.30 - SCIATICA, UNSPECIFIED SIDE Status: Acute Priority: High Qualifiers: Laterality: left Qualified Code(s): M54.32 - Sciatica, left side - Patient Summary/Data Complications: none Consults: Consultations 08/03/18 15:32 PT Evaluation and Treatment [CONS] Routine Hospital Course: Patient is up and ambulating to bathroom. Has been given Solu Medrol and flexeril. Continues to have pain but tolerating activity somewhat better and is asking to be discharged home as now home to assist in cares/meds and feels can handle at home. Did discuss CT scan but will wait for MRI on Sunday. See PT this week. Flexeril for muscle spasms. Ice or heat. Has [place] and Percocet as well as Tramadol at home from last back injury. - Patient Instructions Diet: Usual Diet as Tolerated Activity: As Tolerated Other/Special Instructions: Patient has flexeril, percocet, tramadol and hydrocodone at home to utilize as needed. Will call with PT referral on Sunday - Discharge Plan *PRESCRIPTION DRUG MONITORING PROGRAM REVIEWED*: No *COPY OF PRESCRIPTION DRUG MONITORING REPORT IN PATIENT MARYURI: No Prescriptions/Med Rec: predniSONE [Prednisone] 40 mg PO DAILY #8 tablet Home Medications: Home Meds Pantoprazole Sodium 40 mg PO DAILY 02/19/17 [History] atorvaSTATin Calcium [Atorvastatin Calcium] 10 mg PO DAILY 02/19/17 [History] Albuterol [Proventil HFA] 2 puff INH Q4H PRN 07/15/18 [History] Losartan/Hydrochlorothiazide [Losartan-HCTZ 100-25 MG] 1 tab PO DAILY 07/15/18 [ History] Psyllium Husk [Metamucil] 660 gm PO DAILY 08/03/18 [History] predniSONE [Prednisone] 40 mg PO DAILY #8 tablet 08/03/18 [Rx] Forms: ED Department Discharge Referrals: PCP,None [Primary Care Provider] - - Discharge Summary/Plan Comment DC Time >30 min.: No - General Info Date of Service: 08/03/18 Admission Dx/Problem (Free Text: Acute Low Back Pain Functional Status: Reports: Pain Controlled, Tolerating Diet, Ambulating ( walking to and from bathroom) - Review of Systems General: Reports: Weakness HEENT: Reports: No Symptoms Pulmonary: Denies: Shortness of Breath Cardiovascular: Denies: Chest Pain, Edema, Lightheadedness Gastrointestinal: Denies: Abdominal Pain, Nausea, Vomiting Musculoskeletal: Reports: Back Pain Skin: Reports: No Symptoms Neurological: Reports: Difficulty Walking, Weakness - Patient Data Vitals - Most Recent: Last Vital Signs Temp 99.7 F 08/03/18 15:32 Pulse 90 08/03/18 15:32 Resp 16 08/03/18 15:32 BP 132/76 08/03/18 15:32 Pulse Ox 97 08/03/18 15:32 Weight - Most Recent: 231 lb 1.6 oz Med Orders - Current: Current Medications Atorvastatin Calcium (Lipitor) 10 mg PO DAILY [facility] Cyclobenzaprine HCl (Flexeril) 10 mg PO TID [facility] Last Admin: 08/03/18 16:19 Dose: 10 mg Enoxaparin Sodium (Lovenox) 40 mg SUBCUT Q24H [facility] Fentanyl (Sublimaze) 25 mcg IVPUSH Q2H PRN PRN Reason: Pain Magnesium Hydroxide (Milk Of Magnesia) 30 ml PO Q12H PRN PRN Reason: Constipation Methylprednisolone Sodium Succinate (Solu-Medrol) 125 mg IVPUSH Q12H [facility] Last Admin: 08/03/18 20:05 Dose: Not Given Non-Formulary Medication (Albuterol) 2 puff INH Q4H PRN PRN Reason: Shortness of Breath Non-Formulary Medication (Losartan/Hydrochlorothiazide [Losartan-Hctz 100-25 Mg] ) 1 tab PO DAILY [facility] Ondansetron HCl (Zofran Odt) 4 mg PO Q4H PRN PRN Reason: nausea, able to take PO Ondansetron HCl (Zofran) 4 mg IV Q4H PRN PRN Reason: Nausea/Vomiting Oxycodone/Acetaminophen (Percocet 325-5 Mg) 2 tab PO Q4H PRN PRN Reason: Pain (moderate 4-6) Pantoprazole Sodium (Protonix) 40 mg PO DAILY [facility] Prednisone (Prednisone) 40 mg PO ONETIME ONE Stop: 08/04/18 08:01 Sodium Chloride (Saline Flush) 10 ml FLUSH ASDIRECTED PRN PRN Reason: Keep Vein Open Temazepam (Restoril) 15 mg PO BEDTIME PRN PRN Reason: Sleep Discontinued Medications Ketorolac Tromethamine (Toradol) 60 mg IM ONETIME ONE Stop: 08/03/18 12:59 Last Admin: 08/03/18 13:24 Dose: 60 mg Methylprednisolone Sodium Succinate (Solu-Medrol) 125 mg IVPUSH Q12H [facility] Last Admin: 08/03/18 17:10 Dose: Not Given Methylprednisolone Sodium Succinate (Solu-Medrol) 125 mg IVPUSH Q12H [facility] Methylprednisolone Sodium Succinate (Solu-Medrol) Confirm Administered Dose 125 mg .ROUTE .STK-MED ONE Stop: 08/03/18 17:25 Last Admin: 08/03/18 17:26 Dose: Not Given Orphenadrine Citrate (Norflex) 60 mg IM NOW STA Stop: 08/03/18 12:59 Last Admin: 08/03/18 13:07 Dose: 60 mg Prednisone (Prednisone) Confirm Administered Dose 40 mg .ROUTE .STK-MED ONE Stop: 08/03/18 20:22 Last Admin: 08/03/18 20:38 Dose: 40 mg - Exam General: Reports: Alert, Oriented HEENT: Reports: Mucous Membr. Moist/[place] Neck: Reports: Supple Lungs: Reports: Clear to Auscultation, Normal Respiratory Effort Cardiovascular: Reports: Regular Rate, Regular Rhythm GI/Abdominal Exam: Normal Bowel Sounds, Soft, Non-Tender Back Exam: Reports: Decreased Range of Motion, Muscle Spasm, Paraspinal Tenderness Extremities: Normal Inspection, No Pedal Edema Skin: Reports: Warm, Dry Neurological: Reports: No New Focal Deficit
[2018-08-04] MEDS ORDERED: Pantoprazole 40 MG Tab.CR PO SCH (08:00)
[2018-08-04] MEDS ORDERED: predniSONE 20 MG Tab PO ONE (08:00)
[2018-08-04] MEDS ORDERED: atorvaSTATin 10 MG Tab PO SCH (08:00)
== END 2018-08-03 19:53 | disposition home or self-care (01) ==
LOC: CC.ED 12:50 → CC.MS 14:09 → CC.ED 14:40 → UNDOADMOB 15:30 → CC.MS 15:30 → UNDODISOB 19:53
PROVIDERS: ADMIT Physician Assistant Medical; ATTEND Physician Assistant Medical
DX: M54.42 Lumbago with sciatica, left side (principal); E78.00 Pure hypercholesterolemia, unspecified; I10 Essential (primary) hypertension; Z79.899 Other long term (current) drug therapy
CPT/HCPCS: 72110; 99284-25; A9270-GY; J1885; J2360; J2930

== ENCOUNTER 2021-04-30 12:56 | Emergency (ER) | payer BC ==
[2021-04-30 13:14] VITALS: BP 129/82; PULSE 87
== END 2021-04-30 13:45 | disposition home or self-care (01) ==
LOC: CC.ED 12:56
DX: S63.501A Unspecified sprain of right wrist, initial encounter (principal); E78.00 Pure hypercholesterolemia, unspecified; I10 Essential (primary) hypertension; Z79.899 Other long term (current) drug therapy; V86.52XA Driver of snowmobile injured in nontraffic accident, initial encounter
CPT/HCPCS: 73110-RT; 99283; 99283-25

== ENCOUNTER 2023-05-18 09:51 | Day surgery (SDC) | payer BC ==
[2023-05-18] MEDS: Lactated Ringers 1,000 ML IV SCH (10:09)
[2023-05-18] MEDS ORDERED: Midazolam 1 MG/ML 2 ML SDV ONE (10:35)
[2023-05-18] MEDS ORDERED: Ketamine 200 MG/20 ML MDV ONE (10:35)
[2023-05-18] MEDS ORDERED: fentaNYL 50 MCG/ML SDV ONE (10:35)
[2023-05-18] MEDS ORDERED: Propofol 200 MG/20 ML SDV ONE ×2 (10:35)
[2023-05-18 11:53] VITALS: BP 123/69; PULSE 68
== END 2023-05-18 12:00 | disposition home or self-care (01) ==
LOC: CC.SDS 09:51
PROVIDERS: ATTEND Family Medicine
DX: Z12.11 Encounter for screening for malignant neoplasm of colon (principal); D12.3 Benign neoplasm of transverse colon; D12.5 Benign neoplasm of sigmoid colon; I10 Essential (primary) hypertension; K21.9 Gastro-esophageal reflux disease without esophagitis; E78.5 Hyperlipidemia, unspecified; J45.909 Unspecified asthma, uncomplicated; R68.82 Decreased libido; Z79.899 Other long term (current) drug therapy
CPT/HCPCS: 00811; J2250; J2704; J3010; J3490; J7120

== ENCOUNTER 2024-02-23 06:45 | Emergency (ER) | payer BC ==
[2024-02-23 06:53] VITALS: BP 119/78; PULSE 90
[2024-02-23] MEDS: fentaNYL 50 MCG/ML SDV IM ONE (07:07)
[2024-02-23] MEDS: methylPREDNISolone Sodium Succinate 125 MG/2 ML SDV IM STA (07:24)
== END 2024-02-23 07:40 | disposition home or self-care (01) ==
LOC: CC.ED 06:45
DX: M54.42 Lumbago with sciatica, left side (principal)
CPT/HCPCS: 96372; 99283; J2919; J3010